=== PATIENT | female | born 1945 | race Caucasian/White ===

== ENCOUNTER 2017-03-17 18:09 | Inpatient (IN) | payer MEDICAID, OTHER ==
[2017-03-03 10:45] VITALS: BMI 34.9
--- NOTE | 2017-03-17 16:28 | NM ---
HISTORY: 71Y Year old female with left breast cancer. TECHNIQUE: Multiple injections of 1.0 mCi of 99m Tc filtered sulfur colloid (total volume of 8 ml) were administered into the left periareolar skin and deep breast tissue. Anterior and oblique projection images of the chest were subsequently obtained. FINDINGS: Left periareolar injection sites are identified with prominent activity. Uptake is also appreciated at the axillary tail in 2 areas indicating lymph nodes to lymph nodes within a separate area at the inferior left breast or left flank anterior abdominal/chest wall region. IMPRESSION: Multiple areas of uptake are identified within likely 3 lymph nodes with 2 at the left axillary tail/ axilla region and a 3rd more inferiorly at the inferior left breast or immediately inferior to the left breast in the anterior abdominal wall/chest wall. Please see discussion above.
[~2017-03-17 18:09] MED LIST: Bupivacaine 0.5% Inj(30mL) ONE; Bupivacaine/Epi 0.25%-1:200,000 10 ml PF inj IJ ONE; HYDROmorphone 0.5 mg/0.5 ml ISec IVP PRN; HYDROmorphone 0.5 mg/0.5 ml ISec ONE; ISOSULFAN BLUE 10 MG/ML ML SC ONE; Lactated Ringer's 1,000 ML IV ONE; Lidocaine 1% Inj (20ml) ONE; Midazolam 2 MG/2 ML VIAL ONE; Morphine 4 MG/ML VIAL IVP PRN; Neostigmine Methylsulfate 3mg/3ml Syringe IV ONE; Oxycodone/Acetaminophen 5/325 mg Tab PO PRN; Propofol 10 mg/ml Inj (20 ML) ONE; Rocuronium 10 mg/ml (5 ml) ONE; ceFAZolin IV 2 gm in Dextrose 1 GM/50 ML BAG IVPB ONE
--- NOTE | 2017-03-17 18:16 | PCM.SURG1 ---
Surgeon's Initial Post Op Note - Surgeon's Notes Surgeon: Dr. Banuelos Rewind Operator: Dr. Galo PGY2, Samara RUBIO Type of Anesthesia: General Endo Pre-Operative Diagnosis: Left breast mass Operative Findings: see dictation Post-Operative Diagnosis: same Operation Performed: Left breast mastectomy w/ sentinel lymph node biopsy Specimen/Specimens Removed: left breast, sentinel lymph nodes Estimated Blood Loss: EBL {In ML}: 20 Blood Products Given: N/A Drains Used: [place] (x2) Post-Op Condition: Good Date of Surgery/Procedure: 03/17/17 Time of Surgery/Procedure: 16:30
--- NOTE | 2017-03-17 18:34 | CP.SDSHP ---
Same Day Surgery H & P - History Proposed Procedure: L breast mastectomy Pre-Op Diagnosis: L breast mass - Previous Medical/Surgical History Cardiac: Hypertension Previous Surgical History: breast Bx - Allergies Allergies: Allergies No Known Allergies Allergy (Verified 08/11/16 10:14) - Physical Exam General Appearance: well, non-toxic Mental Status: Alert & Oriented x3 Neuro: WNL Heart: WNL Lungs: WNL GI: WNL - {Optional Preform as Required} Breast: Other (L breast mass) Abdomen: WNL - Impression Impression: L breast mass, intaductal Ca Pt. Evaluated Today:Candidate for Anesthesia & Procedure: Yes - Date & Time Date: 03/17/17 Time: 16:00 Short Stay Discharge - Short Stay Discharge Admitting Diagnosis/Reason for Visit: MALIGNANT NEOPLASM OF UNSP SITE OF UNSPECIFIED FEM Disposition: HOME/ ROUTINE
[2017-03-17] MEDS ORDERED: BUPIVACAINE 0.125%/0.9% NACL 600 ML IJ ONE (19:00)
[2017-03-17] MEDS ORDERED: Dextrose 5%/0.45% NS 1,000 ML IV ONE (19:30)
[2017-03-17] MEDS: Dextrose 5%/0.45% NS 1,000 ML IV SCH (22:42)
[2017-03-18 07:25] LABS: BASO % 0.4 % (0.0-2.0); LYMPH # 1.6 K/uL (1.0-4.3); MEAN PLATELET VOLUME 8.3 fL (7.2-11.7)
[2017-03-18 07:34] LABS: EOS % 0.3 % (0.0-4.0); HEMATOCRIT 30.8 % (34.0-47.0); LYMPH % 14.1 % (20.0-40.0); MEAN CELL VOLUME 64.7 fL (81.0-99.0); MEAN CORPUSCULAR HEMOGLOBIN 20.3 pg (27.0-31.0); MEAN CORPUSCULAR HGB CONC 31.4 g/dL (33.0-37.0); MONO # 0.9 K/uL (0.0-0.8); RED CELL DISTRIBUTION WIDTH 15.8 % (11.5-14.5)
[2017-03-18 07:35] LABS: WHITE BLOOD COUNT 11.4 K/uL (4.8-10.8)
[2017-03-18 07:57] LABS: CHLORIDE 99 mmol/L (98-107); POTASSIUM 3.7 mmol/L (3.6-5.2); SODIUM 133 mmol/L (132-148)
[2017-03-18 08:00] LABS: BLOOD UREA NITROGEN 15 mg/dL (7-17); CARBON DIOXIDE 24 mmol/L (22-30); GFR AFRICAN-AMERICAN > 60; GLUCOSE,RANDOM 115 mg/dL (65-105)
[2017-03-18 08:01] LABS: CALCIUM 7.8 mg/dl (8.6-10.4)
[2017-03-18] MEDS: Dextrose 5%/0.45% NS 1,000 ML IV SCH (12:31)
[2017-03-18] MEDS ORDERED: BUPIVACAINE 0.125%/0.9% NACL 600 ML IJ ONE (14:30)
[2017-03-19 01:42] VITALS: RESP 20
[2017-03-19] MEDS: Dextrose 5%/0.45% NS 1,000 ML IV SCH (02:41)
[2017-03-19 07:08] LABS: HEMATOCRIT 23.9 % (34.0-47.0); MEAN CELL VOLUME 64.4 fL (81.0-99.0); MEAN CORPUSCULAR HGB CONC 32.2 g/dL (33.0-37.0)
[2017-03-19 07:20] LABS: MEAN CORPUSCULAR HEMOGLOBIN 20.7 pg (27.0-31.0); MEAN PLATELET VOLUME 8.3 fL (7.2-11.7); RED CELL DISTRIBUTION WIDTH 15.6 % (11.5-14.5); WHITE BLOOD COUNT 6.6 K/uL (4.8-10.8)
--- NOTE | 2017-03-19 18:09 | CP.PCM.PN ---
<IrajTuyet - Last Filed: 03/19/17 18:05> Subjective - Date & Time of Evaluation Date of Evaluation: 03/19/17 Time of Evaluation: 06:45 - Subjective Subjective: General Surgery Dr. Banuelos Pt S&E @bedside. NAEO per nurse. ~140cc ailyn output overnight. pt has no complaints. pain controlled. denies F/C, N/V, D/C. tolerating diet. Objective - Vital Signs/Intake and Output Vital Signs (last 24 hours): Temp Pulse Resp BP Pulse Ox 99.3 F 97 H 20 130/75 98 03/19/17 07:00 03/19/17 07:00 03/19/17 07:00 03/19/17 07:00 03/19/17 07:00 Intake and Output: 03/19/17 03/19/17 06:59 18:59 Intake Total 1464 800 Output Total 250 115 Balance 1214 685 - Medications Medications: Current Medications Dextrose/Sodium Chloride (Dextrose 5%/0.45% Ns 1000 Ml) 1,000 mls @ 83 mls/hr IV .Q12H3M [facility] Last Admin: 03/19/17 02:41 Dose: 83 mls/hr Ceftriaxone Sodium 1 gm/ (Sodium Chloride) 100 mls @ 100 mls/hr IVPB Q12H [facility] Last Admin: 03/19/17 10:33 Dose: 100 mls/hr BUPIVACAINE 0.125%/0.9% NACL (Bupivacaine-Ns 0.125% On-Q Handbag Operator) 600 mls @ 7 mls/ hr IJ ONCE ONE Stop: 03/21/17 08:42 Morphine Sulfate (Morphine) 4 mg IVP Q4H PRN PRN Reason: Pain, severe (8-10) Ondansetron HCl (Zofran Inj) 4 mg IVP Q4 PRN PRN Reason: Nausea/Vomiting Last Admin: 03/17/17 18:28 Dose: 4 mg Oxycodone/Acetaminophen (Percocet 5/325 Mg Tab) 1 tab PO Q4 PRN PRN Reason: Pain, moderate (4-7) Stop: 03/20/17 18:09 - Labs Labs: 03/19/17 06:54 03/18/17 07:06 - Constitutional Appears: Non-toxic, No Acute Distress - Head Exam Head Exam: NORMAL INSPECTION - Eye Exam Eye Exam: Normal appearance - ENT Exam ENT Exam: Mucous Membranes Moist - Respiratory Exam Respiratory Exam: NORMAL BREATHING PATTERN. absent: Accessory Muscle Use, Respiratory Distress - Cardiovascular Exam Cardiovascular Exam: absent: Bradycardia, Tachycardia - GI/Abdominal Exam GI & Abdominal Exam: Soft. absent: Distended, Tenderness - Extremities Exam Extremities Exam: Normal Inspection - Neurological Exam Neurological Exam: Alert, Awake, Oriented x3 - Psychiatric Exam Psychiatric exam: Normal Affect, Normal Mood - Skin Skin Exam: Dry, Normal Color, Warm - Additional Findings Additional findings: L mastectomy dressings lightly stained, dry, intact blakes w/ sanguinous>serous output OnQ in place surgical bra stained w/ serosanguinous fluid Assessment and Plan - Assessment and Plan (Free Text) Assessment: 71 y/o F POD#2 s/p L breast mastectomy w/ SLN Bx and worsening anemia - drop in Hbg by 2points overnight - transfuse 1 unit pRBC and 1 uint FFP - hold Hep SQ - recheck CBC in AM - monitor drain output - cont pain management - encourage OOB to chair/Amb/IS use Pt discussed w/ Dr. Lakisha Galo DO PGY2 <Keon Banuelos - Last Filed: 03/21/17 17:36> Objective - Vital Signs/Intake and Output Vital Signs (last 24 hours): Temp Pulse Resp BP Pulse Ox 98.0 F 85 20 145/70 97 03/20/17 08:31 03/20/17 08:31 03/20/17 08:31 03/20/17 08:31 03/20/17 08:31 - Labs Labs: 03/20/17 07:55 03/18/17 07:06 Attending/Attestation - Attestation I have personally seen and examined this patient.: Yes I have fully participated in the care of the patient.: Yes I have reviewed all pertinent clinical information, including history, physical exam and plan: Yes Notes (Text): 03/21/17 17:35 Pt was seen and examined at bedside Agree with above note and assessment Pt remain asymptomatic Drain out put is approx 400 cc DC heparin Transfuse FFP and PRBC Repeat CBC Plan d.w pt and primary team in detail Risk and benefit explained
[2017-03-20 00:58] VITALS: O2SAT 97
[2017-03-20] MEDS: Dextrose 5%/0.45% NS 1,000 ML IV SCH ×2 (01:19→05:56)
[2017-03-20 08:15] LABS: HEMATOCRIT 26.2 % (34.0-47.0); MEAN CORPUSCULAR HGB CONC 32.7 g/dL (33.0-37.0); MEAN PLATELET VOLUME 8.1 fL (7.2-11.7); RED CELL DISTRIBUTION WIDTH 18.8 % (11.5-14.5)
[2017-03-20 08:22] LABS: MEAN CELL VOLUME 67.2 fL (81.0-99.0)
[2017-03-20 08:32] VITALS: BP 145/70; PULSE 85; TEMP 98
--- NOTE | 2017-03-20 10:20 | CP.PCM.PN ---
<Tuyet Galo - Last Filed: 03/20/17 10:16> Subjective - Date & Time of Evaluation Date of Evaluation: 03/20/17 Time of Evaluation: 07:00 - Subjective Subjective: General Surgery Dr. Banuelos Pt S&E @bedside. NAEO. admits to minimal axillary pain, though controlled w/ medication. denies N/V, F/C. tolerating diet. Objective - Vital Signs/Intake and Output Vital Signs (last 24 hours): Temp Pulse Resp BP Pulse Ox 98.0 F 85 20 145/70 97 03/20/17 08:31 03/20/17 08:31 03/20/17 08:31 03/20/17 08:31 03/20/17 08:31 Intake and Output: 03/20/17 03/20/17 06:59 18:59 Intake Total 2017 Output Total 325 Balance 1692 - Medications Medications: Current Medications Dextrose/Sodium Chloride (Dextrose 5%/0.45% Ns 1000 Ml) 1,000 mls @ 83 mls/hr IV .Q12H3M [facility] Last Admin: 03/20/17 05:56 Dose: Not Given Ceftriaxone Sodium 1 gm/ (Sodium Chloride) 100 mls @ 100 mls/hr IVPB Q12H [facility] Last Admin: 03/20/17 09:00 Dose: 100 mls/hr BUPIVACAINE 0.125%/0.9% NACL (Bupivacaine-Ns 0.125% On-Q Floor Helper) 600 mls @ 7 mls/ hr IJ ONCE ONE Stop: 03/21/17 08:42 Ondansetron HCl (Zofran Inj) 4 mg IVP Q4 PRN PRN Reason: Nausea/Vomiting Last Admin: 03/17/17 18:28 Dose: 4 mg Oxycodone/Acetaminophen (Percocet 5/325 Mg Tab) 1 tab PO Q4 PRN PRN Reason: Pain, moderate (4-7) Stop: 03/20/17 18:09 Last Admin: 03/20/17 08:58 Dose: 1 tab - Labs Labs: 03/20/17 07:55 03/18/17 07:06 - Constitutional Appears: Non-toxic, No Acute Distress - Head Exam Head Exam: NORMAL INSPECTION - Eye Exam Eye Exam: Normal appearance - ENT Exam ENT Exam: Mucous Membranes Moist - Respiratory Exam Respiratory Exam: absent: Accessory Muscle Use, Respiratory Distress, NORMAL BREATHING PATTERN - Cardiovascular Exam Cardiovascular Exam: absent: Bradycardia, Tachycardia - GI/Abdominal Exam GI & Abdominal Exam: Soft. absent: Distended - Extremities Exam Extremities Exam: Normal Inspection - Neurological Exam Neurological Exam: Alert, Awake - Psychiatric Exam Psychiatric exam: Normal Affect, Normal Mood - Skin Skin Exam: Dry, Normal Color, Warm - Additional Findings Additional findings: L mastectomy dressings lightly stained, dry, intact blakes w/ serosanguinous output OnQ in place - empty surgical bra stained w/ serosanguinous fluid Assessment and Plan - Assessment and Plan (Free Text) Assessment: 71 y/o F POD#3 s/p L breast mastectomy w/ SLN Bx and improving anemia - monitor drain output - cont pain management - change dressings PRN - will likely remove OnQ - encourage OOB to chair/Amb/IS use - Possible discharge Will discuss w/ Dr. Lakisha Galo DO PGY2 <Keon Banuelos - Last Filed: 03/21/17 17:42> Objective - Vital Signs/Intake and Output Vital Signs (last 24 hours): Temp Pulse Resp BP Pulse Ox 98.0 F 85 20 145/70 97 03/20/17 08:31 03/20/17 08:31 03/20/17 08:31 03/20/17 08:31 03/20/17 08:31 - Labs Labs: 03/20/17 07:55 03/18/17 07:06 Attending/Attestation - Attestation I have personally seen and examined this patient.: Yes I have fully participated in the care of the patient.: Yes I have reviewed all pertinent clinical information, including history, physical exam and plan: Yes Notes (Text): 03/21/17 17:39 HB is 8.6 after PRBC. No clinical evidence of active bleeding. Drain output is 80 cc Pt can be DC home with drain f.u next week
--- NOTE | 2017-03-20 11:09 | CP.PCM.DIS ---
Provider - Provider Date of Admission: 03/18/17 14:06 Attending physician: Keon Banuelos MD Time Spent in preparation of Discharge (in minutes): 25 Hospital Course - Lab Results Lab Results: Most Recent Lab Values WBC 7.0 K/uL (4.8-10.8) 03/20/17 07:55 RBC 3.89 Mil/uL (3.80-5.20) 03/20/17 07:55 Hgb 8.6 g/dL (11.0-16.0) L 03/20/17 07:55 Hct 26.2 % (34.0-47.0) L 03/20/17 07:55 MCV 67.2 fL (81.0-99.0) L D 03/20/17 07:55 MCH 22.0 pg (27.0-31.0) L 03/20/17 07:55 MCHC 32.7 g/dL (33.0-37.0) L 03/20/17 07:55 RDW 18.8 % (11.5-14.5) H 03/20/17 07:55 Plt Count 180 K/uL (130-400) 03/20/17 07:55 MPV 8.1 fL (7.2-11.7) 03/20/17 07:55 Neut % (Auto) 77.2 % (50.0-75.0) H 03/18/17 07:06 Lymph % (Auto) 14.1 % (20.0-40.0) L 03/18/17 07:06 [place] % (Auto) 8.0 % (0.0-10.0) 03/18/17 07:06 Eos % (Auto) 0.3 % (0.0-4.0) 03/18/17 07:06 Baso % (Auto) 0.4 % (0.0-2.0) 03/18/17 07:06 Neut # 8.8 K/uL (1.8-7.0) H 03/18/17 07:06 Lymph # 1.6 K/uL (1.0-4.3) 03/18/17 07:06 [place] # 0.9 K/uL (0.0-0.8) H 03/18/17 07:06 Eos # 0.0 K/uL (0.0-0.7) 03/18/17 07:06 Baso # 0.0 K/uL (0.0-0.2) 03/18/17 07:06 Differential Comment 03/18/17 07:06 Sodium 133 mmol/L (132-148) 03/18/17 07:06 Potassium 3.7 mmol/L (3.6-5.2) 03/18/17 07:06 Chloride 99 mmol/L (98-107) 03/18/17 07:06 Carbon Dioxide 24 mmol/L (22-30) 03/18/17 07:06 Anion Gap 13 (10-20) 03/18/17 07:06 BUN 15 mg/dL (7-17) 03/18/17 07:06 Creatinine 0.7 mg/dL (0.7-1.2) 03/18/17 07:06 Est GFR ( Amer) > 60 03/18/17 07:06 Est GFR (Non-Af Amer) > 60 03/18/17 07:06 POC Glucose (mg/dL) 129 mg/dL (65-110) H 03/18/17 21:39 Random Glucose 115 mg/dL (65-105) H 03/18/17 07:06 Calcium 7.8 mg/dl (8.6-10.4) L 03/18/17 07:06 Blood Type B POSITIVE 03/19/17 13:30 Blood Type Confirm B POSITIVE 03/19/17 13:30 Antibody Screen Negative 03/19/17 13:30 - Hospital Course Hospital Course: 71 y/o F presented to [facility] for L breast mastectomy and SLN Bx. Pt tolerated the procedure well w/ no complications. Pt was admitted for pain control and observation. Pt developed bleeding post-op from SQ Hep. Pt was transfused 1 unit pRBCs and 1 FFP. H/H responded appropriately and is stable. Pain is well controlled. Pt is cleared for discharge to home w/ instructions to follow up with Dr. Banuelos in his office on Wednesday. Drains will be removed in office. Discharge Exam - Head Exam Head Exam: NORMAL INSPECTION Discharge Plan - Discharge Medications Prescriptions: Amoxicillin/Clavulanate [Augmentin 500 MG-125 MG] 1 tab PO BID #14 tab - Follow Up Plan Condition: GOOD Disposition: HOME/ ROUTINE Instructions: Lauri-Urena Drain Care (DC), Mastectomy (DC), Care For Your Absorbable Stitches (DC) Additional Instructions: Follow up w/ Dr. Banuelos in his office on Wednesday Follow up with primary medical doctor. Take all medication as prescribed May take over the counter Tylenol/Motrin Continue to wear surgical bra change bandages as needed return to ED if fever >100.4, pain,redness, drainage from sutures, or suture rupture. Referrals: Keon Banuelos MD [Staff Provider] -
--- NOTE | 2017-03-22 07:03 | OP ---
PROCEDURE DATE: 03/17/2017 PREOPERATIVE DIAGNOSIS: Left breast cancer. POSTOPERATIVE DIAGNOSIS: Left breast cancer. PROCEDURES DONE: 1. Left mastectomy. 2. [place] lymph node dissection. 3. ON-Q pain catheter pump placement. SURGEON: Keon Banuelos MD ASSISTANTS: Tuyet Galo, PGY-2 resident and JOANNE Donaldson TYPE OF ANESTHESIA: General endotracheal tube anesthesia. ESTIMATED BLOOD LOSS: Around 20 mL. DRAINS: Two drains was placed, one in the lower flap and another one is in axilla. COMPLICATIONS: None. INTRAOPERATIVE FINDINGS: The patient had left outer and upper quadrant breast cancer and the patient had negative sentinel lymph node biopsy. DESCRIPTION OF PROCEDURE: On intraoperative steps, this 71-year-old female was diagnosed with a left breast cancer and the patient was consented for left mastectomy and sentinel lymph node biopsy possible axillary lymph node dissection. The patient was brought to the OR and placed on the operating table after induction of the anesthesia. The both breast, chest, and upper neck were prepped and draped in the usual sterile fashion and the elliptical incision was made surrounding the left upper outer breast mass and also there was a small incision made in the left breast and the Neoprobe was used to identify the sentinel lymph node activity and three sentinel lymph nodes were dissected and it was sent for the frozen section. Afterwards, the elliptical incision was made and upper and lower flaps were created. The upper flap dissection was done up to the infraclavicular area. The inferior area dissection was carried down up to the costal margin and laterally up to the latissimus dorsi and medially up to the sternum and breast was from the underlying pectoral muscles and the pectoral fascia was taken with the specimen and the breast was sent to the table for the pathology. The thickness of the flap was adequate on both sides and after proper hemostasis, axillary drain as well as lower flap drain was placed and On-Q pain catheter pump was placed in the upper flap and the drain was secured to the skin and wound was closed in two layers, subcutaneous with the 2-0 Vicryl multiple stitches, and the skin with a 4-0 Monocryl and dry sterile dressing was applied. The patient tolerated the procedure well. Count of instrument was correct. There was no apparent complications. The patient was extubated in the OR, sent to the postanesthesia care unit in stable condition. Keon Banuelos MD
== END 2017-03-20 14:39 | disposition home or self-care (01) | DRG 581 ==
LOC: C.9S 18:09 → C.6T 18:09 → C.SDS 03-18 14:45
PROVIDERS: ADMIT Surgery Surgical Critical Care; ATTEND Surgery Surgical Critical Care
PROC: 0HTU0ZZ Resection of Left Breast, Open Approach (ICD-10-PCS; principal; 2017-03-18)
PROC: 07B60ZX Excision of Left Axillary Lymphatic, Open Approach, Diagnostic (ICD-10-PCS; 2017-03-18)
PROC: 0WH833Z Insertion of Infusion Device into Chest Wall, Percutaneous Approach (ICD-10-PCS; 2017-03-18)
PROC: 30233N1 Transfusion of Nonautologous Red Blood Cells into Peripheral Vein, Percutaneous Approach (ICD-10-PCS; 2017-03-19)
DX: C50.412 Malignant neoplasm of upper-outer quadrant of left female breast (principal); D64.9 Anemia, unspecified; I10 Essential (primary) hypertension